=== PATIENT | female | born 1955 | race Caucasian/White ===

== ENCOUNTER → 2017-12-11 | Outpatient (CLI) | payer OTHER ==
[~2017-12-11] MED LIST: ACET650T38 PO; BIOT800T4 PO; CALC-734 PO; CHOL100062 PO; CHOL500050 PO; DOCU-416 PO; EXE25PT PO; GLUC100026 PO; HYDR-4309 PO; LETPT PO; LEVO150T72 PO; LEVO200T44 PO; LUTE20CA11 PO; MAGN250T34 PO; MELA1TAB27 PO; MULT-865 PO; NAPR220C12 PO; OMEG100032 PO; POTA99TA6 PO; PYRI100T57 PO; UBID200C21 PO; VITA-175 PO
[2017-12-11 19:33] LABS: PLATELET COUNT, AUTOMATED 343 K/uL (150-450)
[2017-12-11 19:45] LABS: LDL CHOLESTEROL 99 mg/dl
== END ==
LOC: LAB 19:18
PROVIDERS: ATTEND Nurse Practitioner Family
DX: Z00.00 Encounter for general adult medical examination without abnormal findings (principal); Z11.59 Encounter for screening for other viral diseases; Z79.899 Other long term (current) drug therapy; E03.9 Hypothyroidism, unspecified
CPT/HCPCS: 36415; 82040; 82247; 82310; 82374; 82435; 82465; 82565; 82947; 83718; 84075; 84132; 84155; 84295; 84439; 84443; 84450; 84460; 84478; 84480; 84520; 85025; 86803

== ENCOUNTER 2018-02-26 07:37 | Outpatient (RCR) | payer OTHER ==
[2018-02-23 07:57] VITALS: BP 131/88
[2018-02-24 16:57] VITALS: BP 124/75
[~2018-02-26 07:37] MED LIST changes: -HYDR-4309 PO; +HYDR-653 PO; +[UNRECOGNIZED DRUG - OTHER] IM ONE
[2018-02-26 07:52] VITALS: BP 115/88
== END 2018-04-23 16:31 | disposition home or self-care (01) ==
LOC: SPU 07:37
PROVIDERS: ATTEND Internal Medicine
DX: C73 Malignant neoplasm of thyroid gland (principal)
CPT/HCPCS: 36415; 84432; 84443; 86800; 96372; J3240

== ENCOUNTER 2018-05-02 18:23 | Emergency (ER) | payer OTHER ==
[~2018-05-02 18:23] MED LIST changes: -[UNRECOGNIZED DRUG - OTHER] IM ONE
--- NOTE | 2018-05-02 18:33 | ER Report ---
History and Physical Time Seen By MD: 18:30 HPI/ROS CHIEF COMPLAINT: flank/abdominal pain HISTORY OF PRESENT ILLNESS: This is a 62 year old female. She has been having pain on the left side, flank and lower abdomen area. 4 days ago was left flank area. Worked through it. Has been trying over the counter medications to see if it would go away. Never really got rid of the pain. Worked Thursday and Thursday as well, same thing. Today is when it radiated around the the lower abdomen. She says that nothing makes it worse or better. No fevers or chills with this. Normal bowels, no diarrhea. Normal urination without dysuria as well. No nausea or vomiting. No history of kidney stones. No history of diverticulitis. No chest pain or shortness of breath. Allergies: Coded Allergies: oxycodone (Verified Allergy, Mild, 05/02/18) tamoxifen (Verified Allergy, Unknown, INFLAMMATION, 05/02/18) Uncoded Allergies: TAPE (Allergy, Mild, BLISTERS, 08/27/11) DERMABOND (Adverse Reaction, Intermediate, skin reaction, 12/30/13) Home Meds Active Scripts Ketorolac Tromethamine (KETOROLAC TROMETHAMINE) 10 Mg Tab, 10 MG PO Q6H PRN for PAIN, #12 TAB 0 Refills Prov:ALEXANDRIA CARLOS MD 05/02/18 Levothyroxine Sodium (SYNTHROID) 200 Mcg Tablet, 200 MCG PO QDAY, #90 TAB 3 Refills Prov:RENETTA CHI APRN CAMP ASSISTANT-C 12/15/17 Reported Medications Celecoxib (CELEBREX) 200 Mg Capsule, 200 MG PO HS, CAPSULE 05/02/18 Pyridoxine Hcl (VITAMIN B-6) 100 Mg Tablet, 100 MG PO DAILY 04/10/16 Glucosamine Sulfate 2KCL (GLUCOSAMINE) 1,000 Mg Tablet, 1000 MG PO HS 09/14/15 Pyridoxine Hcl (VITAMIN B-6) 100 Mg Tablet, 100 MG PO BID 09/14/15 Lutein (LUTEIN) 20 Mg Capsule, 20 MG PO HS, CAPSULE 09/14/15 Ubidecarenone (CO Q-10) 200 Mg Capsule, 200 MG PO DAILY, CAPSULE 09/08/14 [place]-3 Fatty Acids (OMEGA-3) 1,000 Mg Capsule, 1000 MG PO DAILY, CAPSULE 09/08/14 Multivitamin (DAILY MULTIPLE VITAMIN) 1 Each Tablet, 1 EACH PO DAILY 09/08/14 Cholecalciferol (Vitamin D3) (VITAMIN D3) 50,000 Unit Capsule, 5000 UNIT PO BID, CAPSULE 04/07/14 Acetaminophen (ACETAMINOPHEN ER) 650 Mg Tablet.er, 1000 MG PO HS, TAB 04/07/14 Melatonin/Pyridoxine (MELATONIN 3 MG TABLET) 1 Each Tablet, 1 EACH PO 12/27/13 Magnesium Oxide (MAGNESIUM) 250 Mg Tablet, 250 MG PO HS 06/01/13 Potassium Gluconate (POTASSIUM) 99 Mg Tablet, 99 MG PO HS 06/01/13 Calcium Carbonate/Vitamin D3 (CALCIUM 500 + D TABLET) 1 Each Tablet, 1 EACH PO HS 06/01/13 Discontinued Reported Medications Biotin (BIOTIN) 800 Mcg Tablet, 800 MCG PO 04/07/14 Reviewed Nurses Notes: Yes Hx Smoking: Yes Smoking Status: Former Smoker Exposure to Second Hand Smoke?: No Hx Substance Use Disorder: No Hx Alcohol Use: Yes (1 BEER NIGHTLY) Constitutional Vital Sign - Last 24 Hours 05/02/18 05/02/18 05/02/18 05/02/18 18:23 18:34 18:34 18:53 Temp 98.3 Pulse 78 81 77 Resp 14 B/P (MAP) 148/88 (108) 148/88 Pulse Ox 92 92 89 O2 Delivery Room Air 05/02/18 05/02/18 05/02/18 05/02/18 19:00 19:05 19:30 19:35 Pulse 69 63 B/P (MAP) 131/77 (95) 142/76 (98) Pulse Ox 87 96 O2 Delivery Room Air Nasal Cannula O2 Flow Rate 2 05/02/18 05/02/18 05/02/18 05/02/18 19:44 20:00 20:05 20:10 Pulse 66 77 B/P (MAP) 125/69 (87) Pulse Ox 96 93 O2 Delivery Nasal Cannula Room Air O2 Flow Rate 2.0 2 05/02/18 05/02/18 20:30 20:40 Pulse 72 B/P (MAP) 121/67 (85) Pulse Ox 95 O2 Delivery Room Air Physical Exam General Appearance: The patient is alert. No acute distress. Non-toxic in appearance. Eyes: Pupils are equal, round. No pallor, injection or icterus. ENT: Mucous membranes are moist. Respiratory: Lungs are clear to auscultation. Cardiovascular: Regular rate and rhythm. No murmurs, gallops or rubs. Normal capillary refill. Gastrointestinal: Abdomen is soft and non tender. But did have some reproducible tenderness on the lower left side. Nondistended. No costovertebral angle tenderness with percussion. Neurological: Alert and oriented x3. No focal neurologic deficits in the extremities. Skin: Warm and dry. No rashes. Has a soft tissue mass lower left lumbar, lipoma, nontender to palpation. Musculoskeletal: Extremities are nontender. No midline lumbar tenderness. DIFFERENTIAL DIAGNOSIS: After history and physical exam, differential diagnosis was considered for flank pain including but not limited to musculoskeletal causes, kidney stone, pyelonephritis, shingles, and intra-abdominal causes such as diverticulitis. Medical Decision Making Data Points Result Diagram: 05/02/188 05/02/18 1838 Laboratory Hematology Test 05/02/18 18:33 05/02/18 18:38 Urine Color Yellow Urine Clarity Clear Urine pH 5.0 pH (4.8-9.5) Urine Specific [place] 1.017 Urine Protein Negative mg/dL (NEGATIVE) Urine Glucose (UA) Negative mg/dL (NEGATIVE) Urine Ketones Negative mg/dL (NEGATIVE) Urine Blood Negative (NEGATIVE) Urine Nitrite Negative (NEGATIVE) Urine Bilirubin Negative (NEGATIVE) Urine Urobilinogen Negative mg/dL (0.2-1.9) Urine Leukocyte Esterase Small (NEGATIVE) Urine RBC 1 /HPF (0-2/HPF) Urine WBC 2 /HPF (0-5/HPF) Urine Squamous Epithelial Cells None /LPF (</=FEW) Urine Bacteria Negative /HPF (NONE-FEW) Urine Mucus None /HPF (NONE-FEW) Red Blood Count 4.79 M/uL (4.17-5.56) Mean Corpuscular Volume 86.0 fL (80.0-96.0) Mean Corpuscular Hemoglobin 28.7 pg (26.0-33.0) Mean Corpuscular Hemoglobin Concent 33.3 g/dL (32.0-36.0) Red Cell Distribution Width 13.9 % (11.5-14.5) Mean Platelet Volume 8.7 fL (7.2-11.1) Neutrophils (%) (Auto) 53.1 % (39.4-72.5) Lymphocytes (%) (Auto) 33.9 % (17.6-49.6) Monocytes (%) (Auto) 8.9 % (4.1-12.4) Eosinophils (%) (Auto) 2.9 % (0.4-6.7) Basophils (%) (Auto) 1.2 % (0.3-1.4) Nucleated RBC Relative Count (auto) 0.1 /100WBC Neutrophils # (Auto) 4.9 K/uL (2.0-7.4) Lymphocytes # (Auto) 3.1 K/uL (1.3-3.6) Monocytes # (Auto) 0.8 K/uL (0.3-1.0) Eosinophils # (Auto) 0.3 K/uL (0.0-0.5) Basophils # (Auto) 0.1 K/uL (0.0-0.1) Nucleated RBC Absolute Count (auto) 0.00 K/uL Sodium Level 140 mmol/L (137-145) Potassium Level 4.4 mmol/L (3.5-5.0) Chloride Level 107 mmol/L (98-107) Carbon Dioxide Level 22 mmol/L (22-31) Blood Urea Nitrogen 22 mg/dl (7-18) Creatinine 1.10 mg/dl (0.52-1.04) Glomerular Filtration Rate Calc 50.3 Random Glucose 100 mg/dl (75-110) Calcium Level 9.8 mg/dl (8.4-10.2) Total Bilirubin 0.1 mg/dl (0.2-1.3) Aspartate Amino Transf (AST/SGOT) 28 U/L (0-35) Alanine Aminotransferase (ALT/SGPT) 29 U/L (0-56) Alkaline Phosphatase 126 U/L (0-126) Total Protein 7.6 g/dl (6.3-8.2) Albumin 4.4 g/dl (3.5-5.0) Amylase Level 68 U/L (0-110) Lipase 179 U/L (23-300) Chemistry Test 05/02/18 18:33 05/02/18 18:38 Urine Color Yellow Urine Clarity Clear Urine pH 5.0 pH (4.8-9.5) Urine Specific Isle 1.017 Urine Protein Negative mg/dL (NEGATIVE) Urine Glucose (UA) Negative mg/dL (NEGATIVE) Urine Ketones Negative mg/dL (NEGATIVE) Urine Blood Negative (NEGATIVE) Urine Nitrite Negative (NEGATIVE) Urine Bilirubin Negative (NEGATIVE) Urine Urobilinogen Negative mg/dL (0.2-1.9) Urine Leukocyte Esterase Small (NEGATIVE) Urine RBC 1 /HPF (0-2/HPF) Urine WBC 2 /HPF (0-5/HPF) Urine Squamous Epithelial Cells None /LPF (</=FEW) Urine Bacteria Negative /HPF (NONE-FEW) Urine Mucus None /HPF (NONE-FEW) White Blood Count 9.2 k/uL (4.5-11.0) Red Blood Count 4.79 M/uL (4.17-5.56) Hemoglobin 13.7 g/dL (12.0-16.0) Hematocrit 41.2 % (34.0-47.0) Mean Corpuscular Volume 86.0 fL (80.0-96.0) Mean Corpuscular Hemoglobin 28.7 pg (26.0-33.0) Mean Corpuscular Hemoglobin Concent 33.3 g/dL (32.0-36.0) Red Cell Distribution Width 13.9 % (11.5-14.5) Platelet Count 349 K/uL (150-450) Mean Platelet Volume 8.7 fL (7.2-11.1) Neutrophils (%) (Auto) 53.1 % (39.4-72.5) Lymphocytes (%) (Auto) 33.9 % (17.6-49.6) Monocytes (%) (Auto) 8.9 % (4.1-12.4) Eosinophils (%) (Auto) 2.9 % (0.4-6.7) Basophils (%) (Auto) 1.2 % (0.3-1.4) Nucleated RBC Relative Count (auto) 0.1 /100WBC Neutrophils # (Auto) 4.9 K/uL (2.0-7.4) Lymphocytes # (Auto) 3.1 K/uL (1.3-3.6) Monocytes # (Auto) 0.8 K/uL (0.3-1.0) Eosinophils # (Auto) 0.3 K/uL (0.0-0.5) Basophils # (Auto) 0.1 K/uL (0.0-0.1) Nucleated RBC Absolute Count (auto) 0.00 K/uL Glomerular Filtration Rate Calc 50.3 Calcium Level 9.8 mg/dl (8.4-10.2) Total Bilirubin 0.1 mg/dl (0.2-1.3) Aspartate Amino Transf (AST/SGOT) 28 U/L (0-35) Alanine Aminotransferase (ALT/SGPT) 29 U/L (0-56) Alkaline Phosphatase 126 U/L (0-126) Total Protein 7.6 g/dl (6.3-8.2) Albumin 4.4 g/dl (3.5-5.0) Amylase Level 68 U/L (0-110) Lipase 179 U/L (23-300) Urinalysis Test 05/02/18 18:33 Urine Color Yellow Urine Clarity Clear Urine pH 5.0 pH (4.8-9.5) Urine Specific [place] 1.017 Urine Protein Negative mg/dL (NEGATIVE) Urine Glucose (UA) Negative mg/dL (NEGATIVE) Urine Ketones Negative mg/dL (NEGATIVE) Urine Blood Negative (NEGATIVE) Urine Nitrite Negative (NEGATIVE) Urine Bilirubin Negative (NEGATIVE) Urine Urobilinogen Negative mg/dL (0.2-1.9) Urine Leukocyte Esterase Small (NEGATIVE) Urine RBC 1 /HPF (0-2/HPF) Urine WBC 2 /HPF (0-5/HPF) Urine Squamous Epithelial Cells None /LPF (</=FEW) Urine Bacteria Negative /HPF (NONE-FEW) Urine Mucus None /HPF (NONE-FEW) EKG/Imaging Imaging EXAMINATION: CT Abdomen and Pelvis With Contrast 05/02/2018 6:33 PM HISTORY: left flank and abdominal pain TECHNIQUE: Spiral scan was through the abdomen and pelvis during injection of nonionic iodinated intravenous contrast. Contrast: 75 mL of IV Isovue 370. One of the following dose optimization techniques was utilized in the performance of this exam: Automated exposure control; adjustment of the mA and/or kV according to the patient's size; or use of an iterative reconstruction technique. Specific details can be referenced in the facility's radiology CT exam operational policy. COMPARISON STUDIES: PET/CT from [place] on the same patient 04/24/2015.. FINDINGS: Liver / biliary: negative Pancreas: negative Spleen: negative Adrenal glands: negative Kidneys / retroperitoneum: No stone, obstruction, or acute perinephric stranding. Small cortical cysts. Pelvic structures: Prior hysterectomy. Ovaries are small or absent. Bowel / peritoneum / mesenteries: No significant acute finding. No diverticular change or features of colitis to account for left-sided pain. Appendix is normal. Small bowel is not distended. Stomach is unremarkable. No ascites or free air. Vessels: Minimal atherosclerosis. Musculoskeletal / Body wall: Degenerative changes in the spine with L4-5 anterolisthesis. Numerous clips along the ventral abdominal wall. Fat density 3.3 cm lipoma lateral to the right iliac crest has not changed significantly from the PET/CT and presumptively benign. Lymph node assessment: negative Lower chest: Nodularity in the posterior right base and a 5 mm micronodule in the left lower lobe are unchanged comparing with CT chest 12/26/2016. IMPRESSION: No significant acute abnormality of abdomen or pelvis to account for left-sided pain demonstrated. Report Dictated By: Noel Vicente MD at 05/02/2018 7:42 PM ED Course/Re-evaluation Clinical Indication for ER IV: Hydration, IV Access ED Course Patient had labs and IV with CT scan of the abdomen and pelvis. Negative labs and imaging. Had initial Morphine 4mg and Zofran 4mg, without much relief. Seemed to do better with 30mg of IV Toradol. Uncertain cause of pain after workup, suspect inflammation causing musculoskeletal pain. Cannot rule out s hingles that can rarely occur without a rash. Will try a course of Toradol over the next 3 days and follow-up as an outpatient. Decision to Disposition Date: May 02, 2018 Decision to Disposition Time: 20:50 Depart Departure Latest Vital Signs Vital Signs Date Time Temp Pulse Resp B/P (MAP) Pulse Ox O2 Delivery O2 Flow Rate FiO2 05/02/18 20:40 72 95 Room Air 05/02/18 20:30 121/67 (85) 05/02/18 20:05 2 05/02/18 18:34 98.3 14 Impression: Primary Impression: Flank pain Condition: Improved Disposition: HOME OR SELF-CARE Referrals: RENETTA CHI APRN CAMP ASSISTANT-C (PCP) New Scripts Ketorolac Tromethamine (KETOROLAC TROMETHAMINE) 10 Mg Tab 10 MG PO Q6H PRN for PAIN, #12 TAB 0 Refills Prov: ALEXANDRIA CARLOS MD 05/02/18 Patient Instructions: Flank Pain (ED) Additional Instructions: We did not find a cause for your flank pain tonight. We think that it is inflammatory or musculoskeletal in origin. Could also be early shingles without a rash yet. Take Toradol 10mg, one every 6 hours for the next 3 days. Increase fluid intake. Follow-up with your oncologist as planned. ALEXANDRIA CARLOS MD May 02, 2018 18:33
[2018-05-02] MEDS ORDERED: ONDANSETRON 4 MG/2 ML VIAL IVP ONE (18:35)
[2018-05-02] MEDS ORDERED: MORPHINE 4 MG/ML SDV IVP ONE (18:35)
[2018-05-02] MEDS ORDERED: NS(*) 0.9% 1000 ML BAG 1,000 ML IV ONE (18:35)
[2018-05-02] MEDS ORDERED: CELE-1 PO (18:40)
[2018-05-02 18:48] LABS: PLATELET COUNT, AUTOMATED 349 K/uL (150-450)
[2018-05-02] MEDS ORDERED: IOPAMIDOL 76% 75 ML INFUS BTL 75 ML ONE (19:00)
[2018-05-02] MEDS ORDERED: KETOROLAC 30 MG/ML VIAL IVP ONE (19:25)
--- NOTE | 2018-05-02 20:08 | RADIOLOGY IMAGING REPORT ---
FACILITY: [facility] - [place] PATIENT NAME: India Carpenter : 1955 MR: [id number] V: [id number] EXAM DATE: ORDERING PHYSICIAN: ALEXANDRIA CARLOS TECHNOLOGIST: Location: [facility] Patient: India Carpenter : 1955 Visit/Account:[id number] Date of Sevice: 05/02/2018 EXAMINATION: CT Abdomen and Pelvis With Contrast 05/02/2018 6:33 PM HISTORY: left flank and abdominal pain TECHNIQUE: Spiral scan was through the abdomen and pelvis during injection of nonionic iodinated in travenous contrast. Contrast: 75 mL of IV Isovue 370. One of the following dose optimization techniques was utilized in the performance of this exam: Autom ated exposure control; adjustment of the mA and/or kV according to the patient's size; or use of an i terative reconstruction technique. Specific details can be referenced in the facility's radiology C T exam operational policy. COMPARISON STUDIES: PET/CT from [place] on the same patient 04/24/2015.. FINDINGS: Liver / biliary: negative Pancreas: negative Spleen: negative Adrenal glands: negative Kidneys / retroperitoneum: No stone, obstruction, or acute perinephric stranding. Small cortical cyst s. Pelvic structures: Prior hysterectomy. Ovaries are small or absent. Bowel / peritoneum / mesenteries: No significant acute finding. No diverticular change or features of colitis to account for left-sided pain. Appendix is normal. Small bowel is not distended. Stomach is unremarkable. No ascites or free air. Vessels: Minimal atherosclerosis. Musculoskeletal / Body wall: Degenerative changes in the spine with L4-5 anterolisthesis. Numerous cl ips along the ventral abdominal wall. Fat density 3.3 cm lipoma lateral to the right iliac crest has not changed significantly from the PET/CT and presumptively benign. Lymph node assessment: negative Lower chest: Nodularity in the posterior right base and a 5 mm micronodule in the left lower lobe are unchanged comparing with CT chest 12/26/2016. IMPRESSION: No significant acute abnormality of abdomen or pelvis to account for left-sided pain demonstrated. Report Dictated By: Noel Vicente MD at 05/02/2018 7:42 PM Report E-Signed By: Noel Vicente MD at 05/02/2018 8:05 PM WSN:[id number]
[2018-05-02 20:30] VITALS: BP 121/67
[2018-05-02] MEDS ORDERED: KETOROLAC TROM 10 MG TAB TH PO ONE (20:50)
[2018-05-02] MEDS ORDERED: KET10 PO (20:53)
== END 2018-05-02 21:05 | disposition home or self-care (01) ==
LOC: ER 18:38
DX: R10.32 Left lower quadrant pain (principal)
CPT/HCPCS: 74177; 81001; 82150; 83690; 85025; 96361; 96374; 96375; 99284; J1885; J2270; J2405; J7030; Q9967; 82040; 82247; 82310; 82374; 82435; 82565; 82947; 84075; 84132; 84155; 84295; 84450; 84460; 84520

== ENCOUNTER → 2018-05-12 | Outpatient (CLI) | payer OTHER ==
[~2018-05-12] MED LIST changes: +CELE-1 PO; +HYDR-385 PO; +KET10 PO; +METH4TAB66 PO
--- NOTE | 2018-05-12 13:25 | RADIOLOGY IMAGING REPORT ---
FACILITY: [facility] - [place] PATIENT NAME: India Carpenter : 1955 MR: [id number] V: [id number] EXAM DATE: ORDERING PHYSICIAN: [facility] TECHNOLOGIST: Location: [facility] [place] Patient: India Carpenter : 1955 Visit/Account:[id number] Date of Sevice: 05/12/2018 NM BONE SCAN COMPLETE HISTORY: History of bilateral breast cancer and thyroid carcinoma TECHNIQUE: 25.3 mCi technetium 99m HDP was injected intravenously. Delayed anterior and posterior wh ole body gamma camera images were obtained. Additional gamma camera images: Right left lateral skull COMPARISON: CT chest December 26, [address] of abdomen and pelvis May 02, 2018 FINDINGS: Bone radiotracer activity: There is a focal advised uptake seen along the posterior aspect of the le ft 10th rib.]. The trabecular pattern seen on the prior CT from May 02, 2018 is slightly mottled. Given the solitary nature of this rib lesion findings are more likely related to prior trauma altho ugh small metastatic focus not totally excluded. Degenerative type uptake is noted over the shoulder s the knees the wrists and ankles. Extraosseous radiotracer activity: Unremarkable. Renal and urinary collecting system activity: Unremarkable. IMPRESSION: Multifocal areas of degenerative type uptake as described Small focal area of isotope uptake along the posterior aspect of the left 10th rib is in the location of mild trabecular modeling on the recent CT. Given the solitary nature this is more likely related to prior trauma although possibility of a small metastatic focus not totally excluded. Report Dictated By: Britt Thomas MD at 05/12/2018 1:15 PM Report E-Signed By: Britt Thomas MD at 05/12/2018 1:21 PM WSN:[id number]
== END ==
LOC: NUC 00:43
DX: C50.819 Malignant neoplasm of overlapping sites of unspecified female breast (principal)
CPT/HCPCS: 78306; A9503

== ENCOUNTER → 2018-09-06 | Outpatient (CLI) | payer OTHER ==
[~2018-09-06] MED LIST changes: +CETI-176 PO; +PRED-1 PO
[2018-09-06 12:15] LABS: PLATELET COUNT, AUTOMATED 408 K/uL (150-450)
== END ==
LOC: LAB 11:55
PROVIDERS: ATTEND Nurse Practitioner Primary Care
DX: R21 Rash and other nonspecific skin eruption (principal)
CPT/HCPCS: 36415; 82040; 82247; 82310; 82374; 82435; 82565; 82947; 84075; 84132; 84155; 84295; 84450; 84460; 84520; 85025; 85651; 86140

== ENCOUNTER 2018-10-22 21:01 | Emergency (ER) | payer OTHER ==
[2018-10-22] MEDS ORDERED: predniSONE 20 MG TAB PO ONE (21:25)
[2018-10-22] MEDS ORDERED: BENZONATATE 100 MG CAP PO ONE (21:25)
--- NOTE | 2018-10-22 21:27 | ER Report ---
History and Physical Time Seen By MD: 19:10 Hx. of Stated Complaint: patient has had a cough for over a week that she can't get under control, patient also states mosquito bites that itch, claritin, benadryl or bendryl cream not helping. was running a a fever last week. HPI/ROS CHIEF COMPLAINT: Cough, but bites HISTORY OF PRESENT ILLNESS: 62-year-old female, ICU nurse here, presents with cough 3 weeks. Cough productive only of clear sputum occasionally. Cough has gradually is not significantly different from onset it is not associated with shortness of breath, fevers or chills, chest pain or chest pressure. No nausea or vomiting. She has tried [id number] medications without relief. Patient also complains of bug bites. She says she has multiple mosquito bites his symptoms are refractory to both topical and oral antihistamines as well as topical corticosteroids. She states she was placed on a prednisone burst approximate 3 weeks to one month ago which resolved the bites but they have returned. She is adamant that they are not bedbug scabies or other ongoing exposure. Patient states that she has had increased autoimmune response since receiving multiple rounds of treatment for multiple episodes of cancer. She has been in remission and cancer since 2010. She had both thyroid and breast cancer. REVIEW OF SYSTEMS: Constitutional: No fever, no chills. Eyes: No discharge. ENT: No sore throat. Cardiovascular: No chest pain, no palpitations. Respiratory: above Gastrointestinal: No abdominal pain, no vomiting. Genitourinary: No hematuria. Musculoskeletal: No back pain. Skin: above Neurological: No headache. Remainder of the 14 system rev: Yes Allergies: Coded Allergies: oxycodone (Verified Allergy, Mild, 10/22/18) tamoxifen (Verified Allergy, Unknown, INFLAMMATION, 10/22/18) Uncoded Allergies: TAPE (Allergy, Mild, BLISTERS, 08/27/11) DERMABOND (Adverse Reaction, Intermediate, skin reaction, 12/30/13) Home Meds Active Scripts Prednisone 10 Mg Tab (PREDNISONE 10 MG TAB) 10 Mg Tablet, 10 MG PO QDAY, #28 TAB take 2 bid x 4 days, then 2 daily x 4 days, then 1 tab x 4 days Prov:ARMANDO CHERY MD 10/22/18 Cetirizine Hcl (ZYRTEC) 10 Mg Tablet, 1 TAB PO QDAY for 10 Days, #10 TAB 0 Refills Prov:IVONE NOVOA DNP, FURNITURE SANDER-BC 09/06/18 Levothyroxine Sodium (SYNTHROID) 200 Mcg Tablet, 200 MCG PO QDAY, #90 TAB 3 Refills Prov:SUNILDamonRENETTA ELDRIDGE SUBHA FURNITURE SANDER-C 06/07/18 Reported Medications Pyridoxine Hcl (VITAMIN B-6) 100 Mg Tablet, 100 MG PO DAILY 04/10/16 Glucosamine Sulfate 2KCL (GLUCOSAMINE) 1,000 Mg Tablet, 1000 MG PO HS 09/14/15 Lutein (LUTEIN) 20 Mg Capsule, 20 MG PO HS, CAPSULE 09/14/15 Ubidecarenone (CO Q-10) 200 Mg Capsule, 200 MG PO DAILY, CAPSULE 09/08/14 [place]-3 Fatty Acids (OMEGA-3) 1,000 Mg Capsule, 1000 MG PO DAILY, CAPSULE 09/08/14 Multivitamin (DAILY MULTIPLE VITAMIN) 1 Each Tablet, 1 EACH PO DAILY 09/08/14 Cholecalciferol (Vitamin D3) (VITAMIN D3) 50,000 Unit Capsule, 65114 UNITS PO QHS, CAPSULE 04/07/14 Acetaminophen (ACETAMINOPHEN ER) 650 Mg Tablet.er, 1000 MG PO HS, TAB 04/07/14 Melatonin/Pyridoxine (MELATONIN 3 MG TABLET) 1 Each Tablet, 1 EACH PO 12/27/13 Magnesium Oxide (MAGNESIUM) 250 Mg Tablet, 250 MG PO HS 06/01/13 Potassium Gluconate (POTASSIUM) 99 Mg Tablet, 99 MG PO HS 06/01/13 Calcium Carbonate/Vitamin D3 (CALCIUM 500 + D TABLET) 1 Each Tablet, 1 EACH PO HS 06/01/13 Discontinued Reported Medications Celecoxib (CELEBREX) 200 Mg Capsule, 200 MG PO HS, CAPSULE 05/02/18 Pyridoxine Hcl (VITAMIN B-6) 100 Mg Tablet, 100 MG PO BID 09/14/15 Discontinued Scripts Prednisone 10 Mg Tab (PREDNISONE 10 MG TAB) 10 Mg Tablet, 2 TAB PO BID, #22 TAB 0 Refills 2 tabs twice daily x3 days. Then 2 tabs once daily x3 days. Then 1 tab daily x4 days. Prov:IVONE NOVOA DNP, FURNITURE SANDER-BC 09/06/18 Hydrocodone Bit/Acetaminophen (HYDROCODON-ACETAMINOPHEN 5-325) 1 Each Tablet, 1- 2 EACH PO Q6H PRN for PAIN, #56 TAB 0 Refills Prov:RENETTA CHI STEAM HAND FURNITURE SANDER-C 05/13/18 Reviewed Nurses Notes: Yes Hx Smoking: Yes Smoking Status: Former Smoker Exposure to Second Hand Smoke?: No Hx Substance Use Disorder: No Hx Alcohol Use: Yes (1 BEER NIGHTLY) Constitutional Vital Sign - Last 24 Hours 10/22/18 10/22/18 10/22/18 10/22/18 21:05 21:16 21:30 21:31 Temp 97.8 Pulse 113 113 ??? Resp 20 B/P (MAP) 144/74 109/66 (80) Pulse Ox 90 93 88 O2 Delivery Room Air 10/22/18 10/22/18 10/22/18 21:46 22:00 22:01 Pulse 102 99 B/P (MAP) 113/77 (89) Pulse Ox 90 88 Physical Exam General Appearance: The patient is alert, has no immediate need for airway protection and no signs of toxicity. Eyes: Pupils equal and round no pallor or injection. ENT, Mouth: Mucous membranes are moist. Respiratory: There are no retractions, lungs are clear to auscultation. Cardiovascular: tachycardic between 100-110, no murmurs, rubs, or gallops Gastrointestinal: Abdomen is soft and non tender, no masses, bowel sounds normal. Neurological: alert, moves all ext Skin: multiple papules trunk, arms, lower extremities. No e/o cellulitis Musculoskeletal: Extremities are nontender, nonswollen and have full range of motion. DIFFERENTIAL DIAGNOSIS: After history and physical exam differential diagnosis was considered for bronchitis, pneumonia, dehydration, cellulitis, infectious cause or result of papules. Medical Decision Making ED Course/Re-evaluation ED Course 62 f with cough without sgs pna; c/w bronchitis, and with ongoing exanthem, no sgs cellulitis. Will f/u with dermatology for eval for need for punch biopsy as exanthem has been persistent. Understands SRP's. Decision to Disposition Date: Oct 22, 2018 Decision to Disposition Time: 22:40 Depart Departure Latest Vital Signs Vital Signs Date Time Temp Pulse Resp B/P (MAP) Pulse Ox O2 Delivery O2 Flow Rate FiO2 10/22/18 22:01 99 88 10/22/18 22:00 113/77 (89) 10/22/18 21:05 97.8 20 Room Air Impression: Primary Impression: Cough Additional Impression: Lower respiratory infection Condition: Improved Disposition: HOME OR SELF-CARE Referrals: RENETTA CHI APRN FURNITURE SANDER-C (PCP) 2 Days New Scripts Prednisone 10 Mg Tab (PREDNISONE 10 MG TAB) 10 Mg Tablet 10 MG PO QDAY, #28 TAB take 2 bid x 4 days, then 2 daily x 4 days, then 1 tab x 4 days Prov: ARMANDO CHERY MD 10/22/18 Patient Instructions: Acute Bronchitis (ED) Additional Instructions: Follow up with your primary provider for further management; return for new shortness of breath, feeling worse, or any concerns. Problem Qualifiers ARMANDO CHERY MD Oct 22, 2018 21:27
[2018-10-22 22:00] VITALS: BP 113/77
--- NOTE | 2018-10-22 22:07 | RADIOLOGY IMAGING REPORT ---
FACILITY: [facility] PATIENT NAME: India Carpenter : 1955 MR: [id number] V: [id number] EXAM DATE: ORDERING PHYSICIAN: ARMANDO CHERY TECHNOLOGIST: Location: [facility] - [place] Patient: India Carpenter : 1955 Visit/Account:[id number] Date of Sevice: 10/22/2018 CHEST PA LAT Additional pertinent History: COMPARISON STUDIES: 03/04/2016 FINDINGS: Support lines and catheters: None Lungs and Pleura: Lung brooks well expanded with no infiltrates or consolidations. No parenchymal ma ss lesions are seen. There are no effusions . Surgical clips overlying the chest wall anteriorly Heart and vasculature: Negative. Kaylah and Mediastinum: Negative. Bones and Chest wall: Negative. Upper Abdomen: Negative. IMPRESSION: 1. Negative chest for acute cardiopulmonary disease. No significant interval change when compared to previous study. Report Dictated By: Aly Ward MD at 10/22/2018 9:49 PM Report E-Signed By: Aly Ward MD at 10/22/2018 10:01 PM WSN:[id number]
[2018-10-22] MEDS ORDERED: PRED-1 PO (22:08)
[2018-10-27] MEDS ORDERED: GUAI120L3 PO (16:42)
[2018-10-27] MEDS ORDERED: AZIT-1 PO (16:42)
[2018-10-27] MEDS ORDERED: BENZ200C15 PO (16:42)
== END 2018-10-22 22:16 | disposition home or self-care (01) ==
LOC: ER 21:29
DX: J22 Unspecified acute lower respiratory infection (principal)
CPT/HCPCS: 71046; 99283; J7512